=== PATIENT | male | born 1985 ===

== ENCOUNTER 2021-07-25 17:11 | Inpatient (IN) | payer SELFPAY ==
[2021-07-25 18:51] VITALS: BMI 27.0
[2021-07-25] MEDS ORDERED: Albuterol 200 PUFF (6.7GM INHALER) INH PRN ×2 (19:03→19:04)
[2021-07-25] MEDS ORDERED: Benzonatate 100 MG CAP PO PRN (20:13)
[2021-07-25] MEDS ORDERED: Ondansetron ODT 4 MG TAB PO PRN (20:17)
[2021-07-25] MEDS ORDERED: Acetaminophen 325 MG TAB PO PRN (20:17)
[2021-07-25] MEDS ORDERED: Ondansetron PF 4 MG/2 ML Vial IVP PRN (20:17)
[2021-07-25] MEDS ORDERED: Acetaminophen 650 MG Suppository PR PRN (20:17)
[2021-07-25] MEDS: Enoxaparin Sodium 40 MG/0.4 ML SYRINGE SC SCH (20:51)
[2021-07-25] MEDS: guaiFENesin ER 600 MG TAB PO SCH (20:53)
[2021-07-25] MEDS: Dexamethasone 10 MG/ML VIAL SLOW IVP SCH (20:57)
[2021-07-26 04:59] LABS: #Basophils 0.1 thou/uL (0.0-0.2); #Lymphocytes 0.5 thou/uL (1.20-3.40); #Monocytes 0.4 thou/uL (0.11-0.59); #Neutrophils 7.5 thou/uL (1.40-6.50); %Basophils 0.8 % (0.0-1.0); %Lymphocytes 5.7 % (21.0-51.0); %Monocytes 4.8 % (0.0-10.0); %Neutrophils 88.7 % (42.0-75.0); Hemoglobin 14.7 g/dL (14.0-18.0); Mean Corpuscular HGB CONC 34.9 g/dL (32.0-36.0); Mean Corpuscular Volume 85.9 fL (78.0-98.0); Platelet Count 228 thou/uL (130-400); Red Blood Cell (RBC) Count 4.91 mill/uL (4.70-6.10); White Blood Cell (WBC) Count 8.4 thou/uL (4.8-10.8)
[2021-07-26 05:29] LABS: Anion Gap 18 mmol/L (10-20); BUN (Urea Nitrogen) 10 mg/dL (8.9-20.6); CRP (Inflammatory) 9.52 mg/dL (= or < 0.5); Calc. Creatinine Clearance 180 mL/min (70-130); Calcium 8.8 mg/dL (7.8-10.44); Carbon Dioxide 19 mmol/L (22-29); Chloride 103 mmol/L (98-107); Glucose 156 mg/dL (70-105); Potassium 4.1 mmol/L (3.5-5.1); Sodium 136 mmol/L (136-145)
[2021-07-26] MEDS ORDERED: REMDESIVIR 200 MG in Sodium Chloride 0.9% 250 ML 210 ML IV SCH (09:00)
[2021-07-26 10:02] LABS: ALT (SGPT) 156 U/L (8-55); AST (SGOT) 117 U/L (5-34); Albumin 3.7 g/dL (3.5-5.0); Alkaline Phosphatase 68 U/L (40-110); Bilirubin, Direct 0.3 mg/dL (0.1-0.3); Bilirubin, Total 0.7 mg/dL (0.2-1.2); Protein, Total 6.6 g/dL (6.0-8.3)
[2021-07-26] MEDS ORDERED: BARICITINIB 2 MG TAB PO SCH (10:15)
[2021-07-26] MEDS: Ascorbic Acid 500 mg Chewable Tablet PO SCH (10:47)
[2021-07-26] MEDS: guaiFENesin ER 600 MG TAB PO SCH (10:47)
[2021-07-26] MEDS: Enoxaparin Sodium 40 MG/0.4 ML SYRINGE SC SCH ×2 (10:47→21:03)
[2021-07-26] MEDS: Cholecalciferol (Vitamin D3) 400 UNITS TAB PO SCH (10:47)
[2021-07-26] MEDS: Zinc Sulfate 220 MG CAP PO SCH (10:48)
[2021-07-26 17:22] LABS: SARS-CoV-2 PCR by NAA DETECTED (NotDetected)
[2021-07-26] MEDS ORDERED: Guaifenesin DM 100-10/5 ML UDCUP PO PRN (20:10)
[2021-07-26] MEDS: Dexamethasone 10 MG/ML VIAL SLOW IVP SCH (21:03)
[2021-07-27 06:53] LABS: ALT (SGPT) 115 U/L (8-55); AST (SGOT) 61 U/L (5-34)
[2021-07-27] MEDS: Ascorbic Acid 500 mg Chewable Tablet PO SCH (07:57)
[2021-07-27] MEDS: Cholecalciferol (Vitamin D3) 400 UNITS TAB PO SCH (07:57)
[2021-07-27] MEDS: Zinc Sulfate 220 MG CAP PO SCH (07:57)
[2021-07-27] MEDS: BARICITINIB 2 MG TAB PO SCH (07:58)
[2021-07-27] MEDS: Enoxaparin Sodium 40 MG/0.4 ML SYRINGE SC SCH ×3 (07:59→21:18)
[2021-07-27] MEDS ORDERED: REMDESIVIR 100 MG in Sodium Chloride 0.9% 250 ML 230 ML IV SCH (09:00)
[2021-07-27] MEDS: Dexamethasone 10 MG/ML VIAL SLOW IVP SCH (21:17)
[2021-07-28 05:21] LABS: ALT (SGPT) 83 U/L (8-55); AST (SGOT) 30 U/L (5-34)
[2021-07-28] MEDS: BARICITINIB 2 MG TAB PO SCH (07:50)
[2021-07-28] MEDS: Cholecalciferol (Vitamin D3) 400 UNITS TAB PO SCH (07:50)
[2021-07-28] MEDS: Enoxaparin Sodium 40 MG/0.4 ML SYRINGE SC SCH ×2 (07:51→19:47)
[2021-07-28] MEDS: Zinc Sulfate 220 MG CAP PO SCH (07:51)
[2021-07-28] MEDS: Ascorbic Acid 500 mg Chewable Tablet PO SCH (07:51)
[2021-07-28] MEDS: Dexamethasone 10 MG/ML VIAL SLOW IVP SCH (19:47)
[2021-07-28] MEDS: Famotidine 20 MG TAB PO SCH (19:47)
[2021-07-29 05:50] LABS: ALT (SGPT) 62 U/L (8-55); AST (SGOT) 20 U/L (5-34); Albumin 3.6 g/dL (3.5-5.0); Alkaline Phosphatase 63 U/L (40-110); Anion Gap 16 mmol/L (10-20); BUN (Urea Nitrogen) 16 mg/dL (8.9-20.6); Bilirubin, Total 0.9 mg/dL (0.2-1.2); Calc. Creatinine Clearance 193 mL/min (70-130); Calcium 8.8 mg/dL (7.8-10.44); Carbon Dioxide 20 mmol/L (22-29); Chloride 102 mmol/L (98-107); Globulin 2.8 g/dL (2.4-3.5); Glucose 140 mg/dL (70-105); Potassium 4.6 mmol/L (3.5-5.1); Protein, Total 6.4 g/dL (6.0-8.3); Sodium 133 mmol/L (136-145)
[2021-07-29 05:54] LABS: Hemoglobin 14.6 g/dL (14.0-18.0); Mean Corpuscular HGB CONC 33.5 g/dL (32.0-36.0); Mean Corpuscular Hemoglobin 28.2 pg (27.0-31.0); Mean Corpuscular Volume 84.2 fL (78.0-98.0); Mean Platelet Volume 7.8 fL (7.4-10.4); Platelet Count 395 thou/uL (130-400); RBC Distribution Width 11.6 % (11.5-14.5); Red Blood Cell (RBC) Count 5.18 mill/uL (4.70-6.10); White Blood Cell (WBC) Count 8.9 thou/uL (4.8-10.8)
[2021-07-29 07:07] LABS: Band 1 % (5-11); Eosinophils 1 % (0-10); Lymphocytes 9 % (21-51); MDiff Complete? YES; Monocytes 3 % (0-10); Neutrophil 86 % (42-75)
[2021-07-29] MEDS: Cholecalciferol (Vitamin D3) 400 UNITS TAB PO SCH (08:49)
[2021-07-29] MEDS: Ascorbic Acid 500 mg Chewable Tablet PO SCH (08:49)
[2021-07-29] MEDS: Famotidine 20 MG TAB PO SCH ×2 (08:50→18:43)
[2021-07-29] MEDS: Enoxaparin Sodium 40 MG/0.4 ML SYRINGE SC SCH (08:50)
[2021-07-29] MEDS: Zinc Sulfate 220 MG CAP PO SCH (08:50)
[2021-07-29] MEDS: BARICITINIB 2 MG TAB PO SCH (08:50)
[2021-07-29] MEDS ORDERED: Calcium Carbonate 500 MG ChewTAB PO PRN (18:43)
[2021-07-29] MEDS: Dexamethasone 10 MG/ML VIAL SLOW IVP SCH (21:56)
[2021-07-30] MEDS: Ascorbic Acid 500 mg Chewable Tablet PO SCH (08:48)
[2021-07-30] MEDS: Enoxaparin Sodium 40 MG/0.4 ML SYRINGE SC SCH (08:48)
[2021-07-30] MEDS: Cholecalciferol (Vitamin D3) 400 UNITS TAB PO SCH (08:48)
[2021-07-30] MEDS: BARICITINIB 2 MG TAB PO SCH (08:48)
[2021-07-30] MEDS: Famotidine 20 MG TAB PO SCH ×2 (08:48→21:03)
[2021-07-30] MEDS: Zinc Sulfate 220 MG CAP PO SCH (08:48)
[2021-07-30] MEDS: Dexamethasone 10 MG/ML VIAL SLOW IVP SCH (21:04)
[2021-07-31] MEDS: BARICITINIB 2 MG TAB PO SCH (08:04)
[2021-07-31] MEDS: Zinc Sulfate 220 MG CAP PO SCH (08:04)
[2021-07-31] MEDS: Famotidine 20 MG TAB PO SCH ×2 (08:04→19:36)
[2021-07-31] MEDS: Cholecalciferol (Vitamin D3) 400 UNITS TAB PO SCH (08:04)
[2021-07-31] MEDS: Ascorbic Acid 500 mg Chewable Tablet PO SCH (08:04)
[2021-07-31] MEDS: Enoxaparin Sodium 40 MG/0.4 ML SYRINGE SC SCH (08:05)
[2021-07-31] MEDS: Dexamethasone 4 MG TAB PO SCH (08:05)
[2021-08-01] MEDS: BARICITINIB 2 MG TAB PO SCH (09:03)
[2021-08-01] MEDS: Famotidine 20 MG TAB PO SCH (09:04)
[2021-08-01] MEDS: Dexamethasone 4 MG TAB PO SCH (09:04)
[2021-08-01] MEDS: Ascorbic Acid 500 mg Chewable Tablet PO SCH (09:04)
[2021-08-01] MEDS: Cholecalciferol (Vitamin D3) 400 UNITS TAB PO SCH (09:05)
[2021-08-01] MEDS: Zinc Sulfate 220 MG CAP PO SCH (09:05)
[2021-08-01] MEDS: Enoxaparin Sodium 40 MG/0.4 ML SYRINGE SC SCH (09:05)
[2021-08-01 12:41] VITALS: BP 139/78; TEMP 99.9
== END 2021-08-01 14:53 | disposition home or self-care (01) | DRG 177 ==
LOC: 2SW 18:07
PROVIDERS: ADMIT Internal Medicine; ATTEND Internal Medicine
PROC: 8E0ZXY6 Isolation (ICD-10-PCS; principal; 2021-07-25)
PROC: XW0DXM6 Introduction of Baricitinib into Mouth and Pharynx, External Approach, New Technology Group 6 (ICD-10-PCS; 2021-07-26)
PROC: XW033E5 Introduction of Remdesivir Anti-infective into Peripheral Vein, Percutaneous Approach, New Technology Group 5 (ICD-10-PCS; 2021-07-26)
DX: U07.1 COVID-19 (principal); J12.82 Pneumonia due to coronavirus disease 2019; J96.01 Acute respiratory failure with hypoxia; R74.01 Elevation of levels of liver transaminase levels; R19.7 Diarrhea, unspecified; Z88.2 Allergy status to sulfonamides
CPT/HCPCS: 36415; 80048; 80053; 80076; 82728; 84450; 84460; 85025; 85379; 86140; J1100; J1650; J8540; U0003; U0005